=== PATIENT | female | born 1970 | race Caucasian/White ===

== ENCOUNTER → 2017-08-21 | Outpatient (CLI) | payer MEDICAID ==
[~2017-08-21] MED LIST: KEFLEX 500MG.500 MG PO; NOMEDS *
--- NOTE | 2017-08-30 10:00 | RADIOLOGY REPORT PS360 ---
DIG MAMM-DX MOLLY W/CAD COMPARISON: Digital mammograms 10/30/2016 and 08/16/2015 INDICATION: There is a history of breast cancer in patient's grandmother diagnosed after menopause. There is been bilateral breast reduction surgery since the previous exam 10/30/2016 TECHNIQUE: Standard MLO and CC views were obtained along with exaggerated cc views. FINDINGS: There is a markedly and diffusely dense and heterogenic parenchymal pattern definitely lessening the sensitivity of mammography. The breasts are definitely smaller than the previous exam secondary to the breast reduction surgery. Very minimal postsurgical scarring is seen near the inframammary folds in each breast. There are few scattered benign-appearing calcifications in each breast. There is no suspicious lesion and there are no suspicious microcalcifications. IMPRESSION: Markedly dense and heterogenic parenchymal pattern with no suspicious lesion seen recommend yearly follow-up BI-RADS CATEGORY: 2_Benign RECOMMENDED FOLLOWUP: 12M 12 MONTH FOLLOW-UP (A letter has been sent to the patient regarding results of the study.)
== END ==
LOC: RAD 12:56
DX: R92.8 Other abnormal and inconclusive findings on diagnostic imaging of breast (principal)
CPT/HCPCS: G0204